=== PATIENT | male | born 2000 | race American Indian/Alaskan Native ===

== ENCOUNTER 2021-08-05 09:43 | Emergency (ER) | payer SELFPAY ==
[2021-08-05 10:33] VITALS: BP 108/68
--- NOTE | 2021-08-05 12:40 | Emergency Department Report ---
Minor Respiratory - HPI Chief Complaint: Abdominal Pain Stated Complaint: HEADACHE/ABD PAIN/DIFFICULTY BREATHING Time Seen by Provider: 08/05/21 12:31 Minor Respiratory: No Rhinorrhea, No Fever Other History: 21-year-old -[place] male who is vaccinated for Covid presents to the emergency room for headache, cough, runny nose body aches for the last 3 to 4 days. Patient has not recently tested for Covid. He states he is taking Goody powders. Does not have a fever has some nausea no vomiting no diarrhea loss of taste or smell. Patient denies any past medical history currently takes no meds on a daily basis and has no known drug allergies. ED Review of Systems ROS: Stated complaint: HEADACHE/ABD PAIN/DIFFICULTY BREATHING Other details as noted in HPI Comment: All other systems reviewed and negative Minor Respiratory Exam - Exam General: Vital signs noted. No distress. Alert and acting appropriately. HEENT: Yes Moist Mucous Membranes, No Pharyngeal Erythema, No Pharyngeal Exudates, No Rhinorrhea, No Conjuctival Injection, No Frontal Tenderness, No Maxillary Tenderness Ear: Neither TM Bulge, Neither TM Erythema, Neither EAC Pain, Neither EAC Discharge Neck: Yes Supple, No Adenopathy Lungs: Yes Good Air Exchange, No Wheezes, No Ronchi, No Stridor, No Cough, No Labored Respirations, No Retractions, No Use of Accessory Muscles, No Other Abnormal Lung Sounds Heart: Yes Regular, No Murmur Abdomen: Yes Normal Bowel Sounds, No Tenderness, No Peritoneal Signs Neurologic: Alert and oriented, no deficits. Musculoskeletal: Unremarkable. ED Course Vital Signs 08/05/21 08/05/21 10:26 10:31 Temperature 98 F Pulse Rate 53 L Respiratory 18 16 Rate Blood Pressure 108/68 [Left] O2 Sat by Pulse 97 95 Oximetry ED Medical Decision Making - Medical Decision Making 21-year-old -[place] male who is vaccinated for Covid presents to the emergency room for headache, cough, runny nose body aches for the last 3 to 4 days. Patient has not recently tested for Covid. He states he is taking Goody powders. Does not have a fever has some nausea no vomiting no diarrhea loss of taste or smell. Patient denies any past medical history currently takes no meds on a daily basis and has no known drug allergies. Discussed with patient needs to get Covid tested can take Tylenol ibuprofen increase his fluid intake take [id number] cold and cough medicine. Critical care attestation.: If time is entered above; I have spent that time in minutes in the direct care of this critically ill patient, excluding procedure time. ED Disposition Clinical Impression: Suspected COVID-19 virus infection Disposition: HOME / SELF CARE / HOMELESS Is pt being admited?: No Does the pt Need Aspirin: No Condition: Stable Instructions: COVID-19 Frequently Asked Questions, COVID-19: How to Protect Yourself and Others - CDC, Prevent the Spread of COVID-19 if You Are Sick - [facility] Additional Instructions: Your symptoms appear most consistent with a nonspecific viral syndrome. However, given this current pandemic, COVID-19 is in the differential of possibilities. I do recommend outpatient Covid 19 testing. In the meantime, isolate/quarantine yourself and stay away from anyone who is elderly, immunocompromised or chronically ill. You can use ibuprofen every 6-8 hours and Tylenol every 4-8 hours, using the dosing on the back of the bottle, as needed for any fever or body aches. Return to the emergency department with any worsening of your symptoms, development of chest pain or shortness of breath, or with any acute distress. Referrals: [facility] [Provider Group] - 3-5 Days Time of Disposition: 12:40
== END 2021-08-05 13:05 | disposition home or self-care (01) ==
LOC: ED 09:43
DX: R51.9 Headache, unspecified (principal); R05.9 Cough, unspecified; J34.9 Unspecified disorder of nose and nasal sinuses; Z20.822 Contact with and (suspected) exposure to COVID-19
CPT/HCPCS: 99282